=== PATIENT | male | born 2000 | race Caucasian/White ===

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

== ENCOUNTER 2023-04-04 16:17 | Emergency (ER) | payer BC, OTHER ==
[2023-04-04] MEDS ORDERED: Meclizine 25 MG Tab PO ONE (16:18)
[2023-04-04] MEDS: Acetaminophen 500 MG Tab PO ONE (16:56)
[2023-04-04] MEDS: Ibuprofen 800 MG Tab PO ONE (16:56)
[2023-04-04] MEDS: Meclizine 25 MG Tab PO ONE (16:56)
[2023-04-04 18:39] VITALS: BP 119/84; PULSE 85
== END 2023-04-04 18:40 | disposition home or self-care (01) ==
LOC: FB.ED 16:17
DX: T74.11XA Adult physical abuse, confirmed, initial encounter (principal); S09.90XA Unspecified injury of head, initial encounter; S09.93XA Unspecified injury of face, initial encounter; Z86.16 Personal history of COVID-19; Z88.8 Allergy status to other drugs, medicaments and biological substances; Y04.2XXA Assault by strike against or bumped into by another person, initial encounter
CPT/HCPCS: 70450; 70486; 99284; A9270-GY